=== PATIENT | female | born 1995 | race Caucasian/White ===

== ENCOUNTER 2018-11-18 18:10 | Emergency (ER) | payer MEDICAID | END 2018-11-18 21:05 | disposition home or self-care (01) | LOC: FTE 21:05 | DX: R21 Rash and other nonspecific skin eruption (principal); T49.4X5A Adverse effect of keratolytics, keratoplastics, and other hair treatment drugs and preparations, initial encounter | CPT/HCPCS: 99282; Z7502 ==